=== PATIENT | female | born 1985 ===

== ENCOUNTER 2017-01-09 09:40 | Emergency (ER) | payer OTHER ==
[2017-01-09 09:40] VITALS: BMI 27.0
[2017-01-09 09:48] VITALS: RESP 18; TEMP 97.6
--- NOTE | 2017-01-09 10:36 | C.PDOC ---
History Of Present Illness 31 year old patient, with a past medical history of hypertension, presents to the ED complaining of light headedness, weakness, and nausea since earlier today when she was at work ([employer]). Patient has a history of gastric sleeve in 05/[address] Mcintosh. Patient admits she has had similar symptoms several times before today- usually eats some candy/drinks soda and symptoms resolve. She also states she checked her blood pressure prior to arrival, and that it was high. Patient states she feels better now. She denies a history of diabetes. She also admits she has not been taking her supplements/vitamins like she should be. Patient denies fever, dizziness, chest pain, shortness of breath, vomiting, abdominal pain. Time Seen by Provider: 01/09/17 09:55 Chief Complaint (Nursing): High Blood Pressure History Per: Patient History/Exam Limitations: no limitations Onset/Duration Of Symptoms: Hrs (prior to arrival) Current Symptoms Are (Timing): Still Present Associated Symptoms: Other (nausea) Severity: Mild Exacerbating Factor(s): Pos: None Recent travel outside of the [place]: No Past Medical History Reviewed: Historical Data, Nursing Documentation, Vital Signs Vital Signs: Last Vital Signs Temp 97.6 F 01/09/17 09:46 Pulse 73 01/09/17 11:25 Resp 18 01/09/17 11:25 BP 132/71 01/09/17 11:25 Pulse Ox 100 01/09/17 11:51 - Medical History PMH: HTN Surgical History: Endoscopy - [facility] Procedures ESOPHAGOGASTRODUODENOSCOPY [EGD] W/CLOSED BIOPSY (02/08/15) EXCISION OF DUODENUM, ENDO, DIAGN (07/17/16) EXCISION OF STOMACH, ENDO, DIAGN (07/17/16) LAPAROSCOPIC ROBOTIC ASSISTED PROCEDURE (05/23/15) LAPAROSCOPIC VERTICAL (SLEEVE) GASTRECTOMY (05/23/15) OTHER GASTROSCOPY (05/23/15) Family History: States: No Known Family Hx - Social History Hx Tobacco Use: No Hx Alcohol Use: Yes (ocassionally) Hx Substance Use: No (Canabis) - Immunization History Hx Tetanus Toxoid Vaccination: No Hx Influenza Vaccination: Yes Hx Pneumococcal Vaccination: Yes Review Of Systems Except As Marked, All Systems Reviewed And Found Negative. Constitutional: Positive for: Weakness. Negative for: Fever Cardiovascular: Positive for: Light Headedness. Negative for: Chest Pain, Palpitations Respiratory: Negative for: Cough, Shortness of Breath Gastrointestinal: Positive for: Nausea. Negative for: Vomiting, Abdominal Pain , Diarrhea Neurological: Negative for: Dizziness Physical Exam - Physical Exam Appears: Well, Non-toxic, No Acute Distress Skin: Warm, Dry Head: Normacephalic Eye(s): bilateral: Normal Inspection Oral Mucosa: Moist Neck: Supple Cardiovascular: Rhythm Regular Respiratory: Normal Breath Sounds, No Rales, No Rhonchi, No Wheezing Gastrointestinal/Abdominal: Normal Exam, Bowel Sounds, Soft, No Tenderness Back: Normal Inspection, No CVA Tenderness Extremity: Normal ROM Neurological/Psych: Oriented x3 Gait: Steady ED Course And Treatment O2 Sat by Pulse Oximetry: 100 (Room Air) Pulse Ox Interpretation: Normal Progress Note: Accheck ordered and reviewed- was low, given PO juice. Reevaluation Time: 11:20 Reassessment Condition: Improved (Patient reassessed, is currently resting comfortably, accucheck has improved and she feels well. She was seen by nutrionist in ED. Patient feels well, repeat accucheck WNL, and patient is comfortale being discharged home. Patient instructed to follow up with bariatric surgeon within 1 week, and she understands she should return to ED if symptoms worsen.) - Physician Consult Information Physician Contacted: Javi Mcintosh Outcome Of Conversation: Spoke with Dr. Mcintosh, he recommends nutrional consult (here or as outpatient). He states he no longer practices bariatrics. Disposition Counseled Patient/Family Regarding: Diagnosis, Need For Followup - Disposition Referrals: Maia Hall MD [Primary Care Provider] - Colby Lopez MD [Staff Provider] - [facility] [Outside] Disposition: HOME/ ROUTINE Disposition Time: 11:20 Condition: STABLE Prescriptions: Lactose-Reduced Food [Ensure Original] 237 ml PO BID #10 bottle Instructions: Non-diabetic Hypoglycemia (ED) Print Language: MARSHALLESE - POA Present On Arrival: None - Clinical Impression Clinical Impression: Bariatric surgery status, Hypoglycemia - Scribe Statement The provider has reviewed the documentation as recorded by the Scribe Jaki Arias Provider Attestation: All medical record entries made by the Scribe were at my direction and personally dictated by me. I have reviewed the chart and agree that the record accurately reflects my personal performance of the history, physical exam, medical decision making, and the department course for this patient. I have also personally directed, reviewed, and agree with the discharge instructions and disposition.
[2017-01-09 11:26] VITALS: BP 132/71; PULSE 73
[2017-01-09 11:35] VITALS: O2SAT 100
== END 2017-01-09 11:26 | disposition home or self-care (01) ==
LOC: C.ER 09:40 → SUPCPDRO 09:40 → C.ER 11:26
DX: E16.2 Hypoglycemia, unspecified (principal); Z98.84 Bariatric surgery status

== ENCOUNTER 2017-02-11 20:08 | Emergency (ER) | payer OTHER ==
[2017-02-11 20:08] VITALS: BMI 27.0
[2017-02-11 20:21] VITALS: BP 134/90; PULSE 76; TEMP 97.4; O2SAT 100
[2017-02-11] MEDS ORDERED: Tmp-Smz 800 mg-160 mg DS Tab PO STA (20:43)
--- NOTE | 2017-02-11 20:43 | C.PDOC ---
History Of Present Illness The patient reports that she developed sudden onset of swelling and pain to the vaginal/clitoral area today, which is associated with purulent drainage. Patient reports that she had a peircing which was removed 2 years, but now new piercings or punctures. Denies fever Time Seen by Provider: 02/11/17 20:22 Chief Complaint (Nursing): Abnormal Skin Integrity History Per: Patient History/Exam Limitations: no limitations Onset/Duration Of Symptoms: Days (1), Persistent Quality Of Symptoms: Painful Pain Scale Rating Of: 4 Recent travel outside of the [place]: No Past Medical History Vital Signs: Last Vital Signs Temp 97.4 F L 02/11/17 20:18 Pulse 76 02/11/17 20:18 Resp 20 02/11/17 21:31 BP 134/90 02/11/17 20:18 Pulse Ox 100 02/11/17 21:23 - Medical History PMH: No Chronic Diseases, HTN Denies: Chronic Kidney Disease Surgical History: Endoscopy - [facility] Procedures ESOPHAGOGASTRODUODENOSCOPY [EGD] W/CLOSED BIOPSY (02/08/15) EXCISION OF DUODENUM, ENDO, DIAGN (07/17/16) EXCISION OF STOMACH, ENDO, DIAGN (07/17/16) LAPAROSCOPIC ROBOTIC ASSISTED PROCEDURE (05/23/15) LAPAROSCOPIC VERTICAL (SLEEVE) GASTRECTOMY (05/23/15) OTHER GASTROSCOPY (05/23/15) Family History: States: No Known Family Hx - Social History Hx Tobacco Use: No Hx Alcohol Use: Yes (ocassionally) Hx Substance Use: No (Canabis) - Immunization History Hx Tetanus Toxoid Vaccination: No Hx Influenza Vaccination: Yes Hx Pneumococcal Vaccination: Yes Review Of Systems Except As Marked, All Systems Reviewed And Found Negative. Constitutional: Negative for: Fever, Chills Cardiovascular: Negative for: Chest Pain Genitourinary: Negative for: Dysuria, Frequency, Hematuria, Vaginal Discharge, Vaginal Bleeding Musculoskeletal: Negative for: Neck Pain, Leg Pain Skin: Negative for: Rash, Bruising Neurological: Negative for: Weakness, Numbness Physical Exam - Physical Exam Appears: Non-toxic, No Acute Distress Skin: Warm, Dry Head: Atraumatic, Normacephalic Eye(s): bilateral: Normal Inspection, PERRL, EOMI Oral Mucosa: Moist Neck: Normal ROM, Supple Gastrointestinal/Abdominal: Soft, No Tenderness Pelvic: Other ((+) 1cm area of mild swelling and tenderness to the clitoral mo , with open wound but no active drainage. No fluctuance or induration) Extremity: Normal ROM, No Swelling Neurological/Psych: Oriented x3, Normal Speech, Normal Motor Gait: Steady ED Course And Treatment O2 Sat by Pulse Oximetry: 100 (on RA) Pulse Ox Interpretation: Normal Disposition - Disposition Referrals: Maia Hall MD [Staff Provider] - Disposition: HOME/ ROUTINE Disposition Time: 21:20 Condition: GOOD Additional Instructions: Soak with warm water or warm compresses 4-5 times per days. Follow up with the medical doctor within 1-2 days for wound check, Return if worsened Prescriptions: Cephalexin [cephalexin] 500 mg PO BID #19 cap Sulfamethoxazole/Trimethoprim [Bactrim DS 800 mg-160 mg] 1 tab PO BID #19 tab Instructions: Abscess (ED) - Clinical Impression Clinical Impression: Abscess
[2017-02-11] MEDS ORDERED: Tmp-Smz 800 mg-160 mg DS Tab ONE (20:54)
[2017-02-11 21:31] VITALS: RESP 20
== END 2017-02-11 21:31 | disposition home or self-care (01) ==
LOC: C.ER 20:08
DX: N76.0 Acute vaginitis (principal)

== ENCOUNTER 2018-03-09 11:47 | Emergency (ER) | payer OTHER ==
[2018-03-09 12:00] VITALS: BMI 27.5
[2018-03-09 12:03] VITALS: O2SAT 100
[2018-03-09] MEDS ORDERED: Sodium Chloride 0.9% 1,000 ML IV ONE (13:07)
[2018-03-09] MEDS ORDERED: Sodium Chloride 0.9% 1,000 ML ONE (13:24)
[2018-03-09 13:25] LABS: BASO % 0.3 % (0.0-2.0); EOS # 0.2 K/uL (0.0-0.7); HEMOGLOBIN 10.6 g/dL (11.0-16.0); LYMPH # 0.9 K/uL (1.0-4.3); LYMPH % 11.5 % (20.0-40.0); MEAN CORPUSCULAR HEMOGLOBIN 20.8 pg (27.0-31.0); MEAN CORPUSCULAR HGB CONC 31.6 g/dL (33.0-37.0); MEAN PLATELET VOLUME 8.6 fL (7.2-11.7); MONO # 0.6 K/uL (0.0-0.8); NEUT % 78.2 % (50.0-75.0); NRBC % 0.1 % (0.0-2.0); RBC 5.1 Mil/uL (3.80-5.20); RED CELL DISTRIBUTION WIDTH 16.9 % (11.5-14.5)
[2018-03-09 13:29] LABS: HCG,QUALITATIVE URINE NEGATIVE (NEGATIVE)
[2018-03-09 13:32] LABS: MEAN CELL VOLUME 65.7 fL (81.0-99.0); WHITE BLOOD COUNT 7.7 K/uL (4.8-10.8)
[2018-03-09 13:38] LABS: ALB/GLOB RATIO 1.2 (1.0-2.1); ALBUMIN 4.3 g/dL (3.5-5.0); ALT/SGPT 35 U/L (9-52); AST/SGOT 35 U/L (14-36); BLOOD UREA NITROGEN 12 mg/dL (7-17); CALCIUM 9.3 mg/dl (8.6-10.4); GFR AFRICAN-AMERICAN > 60; GFR NON-AFRICAN AMERICAN > 60; LIPASE 84 U/L (23-300); SQUAMOUS EPITHIAL 3 /hpf (0-5); URINE BILIRUBIN NEGATIVE (NEGATIVE); URINE BLOOD NEGATIVE (NEGATIVE); URINE CLARITY Clear (Clear); URINE COLOR Amber (YELLOW); URINE GLUCOSE (UA) NORMAL (Normal); URINE LEUKOCYTE ESTERASE NEG Leu/uL (Negative); URINE PROTEIN 1+ mg/dL (NEGATIVE)
--- NOTE | 2018-03-09 13:50 | C.PDOC ---
History Of Present Illness 32 yo female w/PMhx of anemia, morbid obesity s/p gastric sleeve 2015 by rolo Long, come in for vealuation of gradual onset of epigastric pain, nausea, few episodes of vomiting since last night. Pt admits, " took Zoloft and then had few beers when I started to feel pain in my stomach". Pt admits, was able tolerate breakfast this AM. Otherwise, pt denies fever, chills , dizziness, CP, SOB, dyspnea, palpitation, hematemesis, melena, hematoschezia, back pain, UTI sx. Ambulate to ED for evaluation, not in any apparent distress. Time Seen by Provider: 03/09/18 12:18 Chief Complaint (Nursing): Abdominal Pain History Per: Patient Onset/Duration Of Symptoms: Gradual Past Medical History Reviewed: Historical Data, Nursing Documentation, Vital Signs Vital Signs: Last Vital Signs Temp 98.4 F 03/09/18 16:28 Pulse 69 03/09/18 16:28 Resp 20 03/09/18 16:28 BP 130/87 03/09/18 16:28 Pulse Ox 100 03/09/18 16:28 - Medical History PMH: Anemia, HTN Denies: Chronic Kidney Disease Surgical History: Endoscopy Other Surgeries: Gastric sleeve 2014 - [facility] Procedures ESOPHAGOGASTRODUODENOSCOPY [EGD] W/CLOSED BIOPSY (02/08/15) EXCISION OF DUODENUM, ENDO, DIAGN (07/17/16) EXCISION OF STOMACH, ENDO, DIAGN (07/17/16) LAPAROSCOPIC ROBOTIC ASSISTED PROCEDURE (05/23/15) LAPAROSCOPIC VERTICAL (SLEEVE) GASTRECTOMY (05/23/15) OTHER GASTROSCOPY (05/23/15) Family History: States: Unknown Family Hx - Social History Hx Tobacco Use: No Hx Alcohol Use: Yes (ocassionally) Hx Substance Use: No (Canabis) - Immunization History Hx Tetanus Toxoid Vaccination: No Hx Influenza Vaccination: Yes Hx Pneumococcal Vaccination: Yes Review Of Systems Except As Marked, All Systems Reviewed And Found Negative. Constitutional: Negative for: Fever, Chills Eyes: Negative for: Vision Change ENT: Negative for: Throat Pain Cardiovascular: Negative for: Chest Pain, Palpitations, Edema, Light Headedness Respiratory: Negative for: Cough, Shortness of Breath, Wheezing Gastrointestinal: Positive for: Nausea, Vomiting, Abdominal Pain. Negative for : Diarrhea, Melena, Hematochezia, Hematemesis Genitourinary: Negative for: Dysuria, Frequency, Incontinence Musculoskeletal: Negative for: Neck Pain, Back Pain Skin: Negative for: Rash Neurological: Negative for: Weakness, Numbness, Altered Mental Status, Headache , Dizziness Physical Exam - Physical Exam Appears: Well, Non-toxic, No Acute Distress Skin: Normal Color, Warm, Dry, No Rash Head: Normacephalic Eye(s): bilateral: PERRL Nose: No Flaring, No Discharge Oral Mucosa: Moist Throat: No Erythema, No Drooling Neck: Trachea Midline, Supple Cardiovascular: Rhythm Regular, No Murmur, No JVD Respiratory: No Decreased Breath Sounds, No Accessory Muscle Use, No Stridor, No Wheezing Gastrointestinal/Abdominal: Bowel Sounds (normal), Soft, Tenderness (mod epigastric), No Distention, No Guarding, No Rebound Back: No CVA Tenderness Extremity: Normal ROM, No Deformity, No Swelling Neurological/Psych: Oriented x3, Normal Speech ED Course And Treatment - Laboratory Results Result Diagrams: 03/09/18 13:20 03/09/18 13:20 Lab Interpretation: No Changes Compared To Prior Results O2 Sat by Pulse Oximetry: 100 Pulse Ox Interpretation: Normal - Other Rad Abd, 2 views X-Ray: Interpreted by Me Interpretation: . - CT Scan/US CT abd/pelvis Other Rad Studies (CT/US): Radiology Report Reviewed CT/US Interpretation: Dictator : Mendel Kamara MD. Frame Runner : Preparation Supervisor Canning : Mendel Kamara MD. Approver2 : Report Date : 03/09/2018 15:39: 30. My Comment : . This report is currently processing and HAS NOT BEEN OFFICIALLY SIGNED BY THE PHYSICIAN - ESTIMATED TIME OF APPROVAL IS 03/09/2018 15 :45. PROCEDURE: CT Abdomen and Pelvis with contrast. HISTORY: Vomiting, r/o obstruction s/p gastric sleeve. Negative test (concurrent with this examination). COMPARISON: 07/17/2016. TECHNIQUE: Contrast dose: 100 cc Visipaque 320. Radiation dose: Total exam DLP = 802.54 mGy-cm. This CT exam was performed using one or more of the following dose reduction techniques: Automated exposure control, adjustment of the mA and/or kV according to patient size, and/or use of iterative reconstruction technique. FINDINGS: LOWER THORAX : Unremarkable. LIVER: Hepatic steatosis. No focal masses. No intrahepatic bile duct dilatation or perihepatic ascites. GALLBLADDER AND BILE DUCTS: Unremarkable. PANCREAS: Unremarkable. No gross lesion or ductal dilatation. SPLEEN: Unremarkable. ADRENALS: Unremarkable. No mass. KIDNEYS AND URETERS: Nonobstructing midpole calculus 6 mm right kidney. Stable finding compared to the prior study. Unremarkable left kidney in ureter. VASCULATURE: Unremarkable. No aortic aneurysm. BOWEL: Stable postoperative findings related to gastric sleeve. APPENDIX: Normal appendix. PERITONEUM: Unremarkable. No free fluid. No free air. LYMPH NODES: Unremarkable. No enlarged lymph nodes. BLADDER: Unremarkable. REPRODUCTIVE: Unremarkable. BONES: No acute fracture. OTHER FINDINGS: None. IMPRESSION: No acute findings related to/accounting for the clinical presentation. Additional benign and/or incidental findings described above. No significant interval change compared to the prior examination(s). Progress Note: Pt was OBS in ED for 3.5 hrs and reports mod improvement in sx. On re-evaluation, pt is afebrile, hemodynamicaly stable. Non-toxic. Tolerate Po well in ED. ENT: no acute finidgs. Neck: Supple, (-) JVD, (-) carotid bruits B/L. Lungs: CTA B/L, BS equla B/L. CVS: (+)S1S2, reg. Abd: benign, (- ) guarding, (-) rebound. Back: (-) CVA tenderness. Blood work review, appears normal. CT abd/plevis- no acute changes. Pt has clinical finidngs c/w epigastric pain, N/V. Pt advised. ref. to F/u with PMD, GI in 2-3 days for re- evaluation. return to ED if any worsening or new changes. Disposition Counseled Patient/Family Regarding: Studies Performed, Diagnosis, Need For Followup, Rx Given - Disposition Referrals: Maia Hall MD [Staff Provider] - Disposition: HOME/ ROUTINE Disposition Time: 15:41 Condition: STABLE Additional Instructions: Encourage fluids SNOW diet for 2-3 days- banana, rice, apple sauce, rice. Avoid dairy, milk, cheese, eggs for 1 week take medication as prescribed Follow up with PMD in 2-3 days for re-evaluation. return to ED if any worsening or new changes. Prescriptions: Pantoprazole Sodium [Protonix] 40 mg PO DAILY #14 tablet.dr Instructions: Nausea and Vomiting, Adult (DC), Gastritis (DC) Forms: [facility] (German), Work Excuse - Clinical Impression Clinical Impression: Epigastric abdominal pain, Vomiting
[2018-03-09] MEDS ORDERED: Morphine 4 MG/ML VIAL ONE (14:46)
[2018-03-09] MEDS ORDERED: Iodixanol 320 mg/ml 150 ml Bottle IV ONE (15:03)
--- NOTE | 2018-03-09 15:41 | CT ---
PROCEDURE: CT Abdomen and Pelvis with contrast HISTORY: Vomiting, r/o obstruction s/p gastric sleeve Negative test (concurrent with this examination). COMPARISON: 07/17/2016 TECHNIQUE: Contrast dose: 100 cc Visipaque 320 Radiation dose: Total exam DLP = 802.54 mGy-cm. This CT exam was performed using one or more of the following dose reduction techniques: Automated exposure control, adjustment of the mA and/or kV according to patient size, and/or use of iterative reconstruction technique. FINDINGS: LOWER THORAX: Unremarkable. LIVER: Hepatic steatosis. No focal masses. No intrahepatic bile duct dilatation or perihepatic ascites. GALLBLADDER AND BILE DUCTS: Unremarkable. PANCREAS: Unremarkable. No gross lesion or ductal dilatation. SPLEEN: Unremarkable. ADRENALS: Unremarkable. No mass. KIDNEYS AND URETERS: Nonobstructing midpole calculus 6 mm right kidney. Stable finding compared to the prior study Unremarkable left kidney in ureter VASCULATURE: Unremarkable. No aortic aneurysm. BOWEL: Stable postoperative findings related to gastric sleeve. APPENDIX: Normal appendix. PERITONEUM: Unremarkable. No free fluid. No free air. LYMPH NODES: Unremarkable. No enlarged lymph nodes. BLADDER: Unremarkable. REPRODUCTIVE: Unremarkable. BONES: No acute fracture. OTHER FINDINGS: None. IMPRESSION: No acute findings related to/accounting for the clinical presentation. Additional benign and/or incidental findings described above. No significant interval change compared to the prior examination(s).
--- NOTE | 2018-03-09 16:19 | RAD ---
HISTORY: pain, vomiting s/p gastric sleeve COMPARISON: Room March 09, 2018. CT abdomen and pelvis FINDINGS: BOWEL: Normal. No obstruction. No free air. BONES: Sclerotic changes in the inter trochanteric region likely bone infarct. OTHER FINDINGS: None. IMPRESSION: No acute findings related to/accounting for the clinical presentation.
[2018-03-09 16:30] VITALS: BP 130/87; PULSE 69; RESP 20; TEMP 98.4
== END 2018-03-09 16:28 | disposition home or self-care (01) ==
LOC: C.ER 11:47
DX: R10.13 Epigastric pain (principal); R11.2 Nausea with vomiting, unspecified; I10 Essential (primary) hypertension; E66.01 Morbid (severe) obesity due to excess calories
CPT/HCPCS: 74019; 74177; 80053; 81001; 83690; 84703; 85025; 96361; 96374; 96375; 99285; C9113; J2270; J2405; J7030; Q9967

== ENCOUNTER 2018-03-19 13:41 | Emergency (ER) | payer OTHER ==
[2018-03-19 13:41] VITALS: BMI 27.5
[2018-03-19 13:54] VITALS: O2SAT 100
[2018-03-19] MEDS ORDERED: Sodium Chloride 0.9% 1,000 ML IV ONE (13:58)
[2018-03-19] MEDS ORDERED: Aluminum Hydroxide/Magnesium Hydroxide Susp (30 mL) PO STA (13:58)
[2018-03-19] MEDS ORDERED: Sodium Chloride 0.9% 1,000 ML ONE (14:09)
[2018-03-19] MEDS ORDERED: Aluminum Hydroxide/Magnesium Hydroxide Susp (30 mL) ONE (14:09)
[2018-03-19 14:18] LABS: BASO % 0.6 % (0.0-2.0); EOS # 0.2 K/uL (0.0-0.7); EOS % 2.2 % (0.0-4.0); HEMOGLOBIN 10.4 g/dL (11.0-16.0); LYMPH # 1.6 K/uL (1.0-4.3); LYMPH % 22.6 % (20.0-40.0); MEAN CELL VOLUME 64.6 fL (81.0-99.0); MEAN CORPUSCULAR HEMOGLOBIN 20.6 pg (27.0-31.0); MEAN CORPUSCULAR HGB CONC 31.9 g/dL (33.0-37.0); MEAN PLATELET VOLUME 8.2 fL (7.2-11.7); MONO # 0.6 K/uL (0.0-0.8); MONO % 7.8 % (0.0-10.0); NEUT # 4.8 K/uL (1.8-7.0); NEUT % 66.8 % (50.0-75.0); RBC 5.03 Mil/uL (3.80-5.20); RED CELL DISTRIBUTION WIDTH 17.1 % (11.5-14.5); WHITE BLOOD COUNT 7.2 K/uL (4.8-10.8)
[2018-03-19 14:30] LABS: ALB/GLOB RATIO 1.4 (1.0-2.1); ALBUMIN 4.7 g/dL (3.5-5.0); ALT/SGPT 38 U/L (9-52); AST/SGOT 29 U/L (14-36); BLOOD UREA NITROGEN 12 mg/dL (7-17); CALCIUM 9.6 mg/dl (8.6-10.4); GFR AFRICAN-AMERICAN > 60; GFR NON-AFRICAN AMERICAN > 60; LIPASE 87 U/L (23-300)
--- NOTE | 2018-03-19 15:05 | C.PDOC ---
History Of Present Illness 32yo female, employee of [employer], comes to ER for evaluation of abdominal pain, mostly in her epigastrium, consistent with gastritis. Patient states she has had diarrhea x 2 weeks and is unable to tolerate PO intake; she reports multiple episodes of vomiting as well. Patient reports the pain is non- radiating, intermittently present and is 8/10. Patient reports she is increasingly anxious and tearful but denies any history of anxiety, depression, panic disorders. Patient states she used to smoke marijuana but stopped when her gastritic symptoms began. Patient has been evaluated multiple times for similar complaints with negative workups. Otherwise, she denies any headache, fever or chills. Time Seen by Provider: 03/19/18 13:52 Chief Complaint (Nursing): Abdominal Pain History Per: Patient History/Exam Limitations: no limitations Onset/Duration Of Symptoms: Days, Persistent Current Symptoms Are (Timing): Still Present Associated Symptoms: Nausea, Vomiting, Diarrhea. denies: Fever, Chills Additional History Per: Patient Past Medical History Reviewed: Historical Data, Nursing Documentation, Vital Signs Vital Signs: Last Vital Signs Temp 97.8 F 03/19/18 13:51 Pulse 79 03/19/18 13:51 Resp 22 03/19/18 13:51 BP 129/90 03/19/18 13:51 Pulse Ox 100 03/19/18 15:27 - Medical History PMH: Anemia, HTN Denies: Chronic Kidney Disease Surgical History: Endoscopy - [facility] Procedures ESOPHAGOGASTRODUODENOSCOPY [EGD] W/CLOSED BIOPSY (02/08/15) EXCISION OF DUODENUM, ENDO, DIAGN (07/17/16) EXCISION OF STOMACH, ENDO, DIAGN (07/17/16) LAPAROSCOPIC ROBOTIC ASSISTED PROCEDURE (05/23/15) LAPAROSCOPIC VERTICAL (SLEEVE) GASTRECTOMY (05/23/15) OTHER GASTROSCOPY (05/23/15) Family History: States: Unknown Family Hx - Social History Hx Tobacco Use: No Hx Alcohol Use: Yes (ocassionally) Hx Substance Use: No (Canabis) - Immunization History Hx Tetanus Toxoid Vaccination: No Hx Influenza Vaccination: Yes Hx Pneumococcal Vaccination: Yes Review Of Systems Except As Marked, All Systems Reviewed And Found Negative. Constitutional: Negative for: Fever, Chills Gastrointestinal: Positive for: Nausea, Vomiting, Abdominal Pain, Diarrhea Psych: Positive for: Anxiety Physical Exam - Physical Exam Appears: Non-toxic, Other (anxious, tearful) Skin: Normal Color, Warm, Dry Head: Atraumatic, Normacephalic Eye(s): bilateral: Normal Inspection Neck: Supple Chest: Symmetrical Cardiovascular: Rhythm Regular Respiratory: Normal Breath Sounds Gastrointestinal/Abdominal: Soft, Tenderness (epigastric), No Mass, No Guarding , No Rebound Back: Normal Inspection Extremity: Normal ROM Neurological/Psych: Oriented x3, Normal Speech, Normal Cognition, Normal Motor, Normal Sensation ED Course And Treatment - Laboratory Results Result Diagrams: 03/19/18 14:14 03/19/18 14:14 O2 Sat by Pulse Oximetry: 100 (RA) Pulse Ox Interpretation: Normal Medical Decision Making Medical Decision Making: Patient feeling much better after Ativan. Tolerating PO. Spoke with Dr. Hall. patient safe for discharge. Will refer to Dr. Riddle for anxiety. Disposition Discussed With : Maia Hall Doctor Will See Patient In The: Office Counseled Patient/Family Regarding: Studies Performed, Diagnosis, Need For Followup, Rx Given - Disposition Referrals: Ary Riddle MD [Staff Provider] - Mainor Melvin MD, PhD [Staff Provider] - Disposition: HOME/ ROUTINE Disposition Time: 15:21 Condition: STABLE Prescriptions: Aluminum Hydroxide/Magnesium H [Maalox 30 ml] 30 ml PO BID #1 bottle LORazepam [Ativan] 1 mg PO TID PRN #12 tab PRN Reason: Anxiety Omeprazole Magnesium [Prilosec Otc] 20 mg PO HS #15 tab Instructions: Gastritis (DC) Forms: [facility] (Ukrainian), General Discharge Instructions - POA Present On Arrival: None - Clinical Impression Clinical Impression: Gastritis, Anxiety - Scribe Statement The provider has reviewed the documentation as recorded by the Scribe (Juju Lowry) Provider Attestation: All medical record entries made by the Scribe were at my direction and personally dictated by me. I have reviewed the chart and agree that the record accurately reflects my personal performance of the history, physical exam, medical decision making, and the department course for this patient. I have also personally directed, reviewed, and agree with the discharge instructions and disposition.
[2018-03-19 15:25] LABS: HCG,QUALITATIVE URINE NEGATIVE (NEGATIVE)
[2018-03-19 15:31] LABS: SQUAMOUS EPITHIAL 6 /hpf (0-5); URINE BILIRUBIN NEGATIVE (NEGATIVE); URINE BLOOD NEGATIVE (NEGATIVE); URINE CLARITY Hazy (Clear); URINE COLOR Yellow (YELLOW); URINE GLUCOSE (UA) NORMAL (Normal); URINE LEUKOCYTE ESTERASE NEG Leu/uL (Negative); URINE PROTEIN 1+ mg/dL (NEGATIVE)
[2018-03-19 15:46] LABS: BARBITURATES, UR NEGATIVE (NEGATIVE); BENZODIAZEPINES, UR NEGATIVE (NEGATIVE); OPIATES, UR NEGATIVE (NEGATIVE); PHENCYCLIDINE, UR NEGATIVE (NEGATIVE)
[2018-03-19 15:48] VITALS: BP 124/85; PULSE 71; RESP 18; TEMP 98.5
== END 2018-03-19 16:00 | disposition home or self-care (01) ==
LOC: C.ER 13:41
DX: K29.70 Gastritis, unspecified, without bleeding (principal); F41.9 Anxiety disorder, unspecified
CPT/HCPCS: 80053; 80324; 80345; 80346; 80349; 80353; 80358; 80361; 81001; 83690; 83992; 84703; 85025; 96361; 96374; 96375; 99285; J2405; J7030

== ENCOUNTER 2018-04-01 06:33 | Day surgery (SDC) | payer OTHER ==
[2018-04-01] MEDS ORDERED: Midazolam 2 MG/2 ML VIAL ONE (08:03)
[2018-04-01] MEDS ORDERED: Propofol 10 mg/ml Inj (20 ML) ONE (08:03)
[2018-04-01] MEDS ORDERED: Lidocaine Hydrochloride 5 ML INJ ONE (08:06)
[2018-04-01 10:05] VITALS: TEMP 98.3
[2018-04-01 10:29] VITALS: PULSE 61; RESP 14
[2018-04-01 10:42] VITALS: BP 124/89; O2SAT 98
== END 2018-04-01 11:05 | disposition home or self-care (01) ==
LOC: C.ENDO 06:33
PROVIDERS: ATTEND Internal Medicine Gastroenterology
DX: R10.13 Epigastric pain (principal); L53.8 Other specified erythematous conditions
CPT/HCPCS: 43239; 84703; 88305; 88313; 88342; J2250; J2704; J3010

== ENCOUNTER 2018-04-19 09:32 | Emergency (ER) | payer OTHER ==
[2018-04-19 09:33] VITALS: BMI 27.5
[2018-04-19 09:41] VITALS: O2SAT 100
[2018-04-19] MEDS ORDERED: Sodium Chloride 0.9% 1,000 ML IV STA (10:02)
--- NOTE | 2018-04-19 10:02 | C.PDOC ---
History Of Present Illness 32-year-old female, presents to the emergency department with complaints of anxiety. Patient states she was supposed to take her Seraquil 50mg, Hydroxine Hydrochloride 25mg, and [place] 150 this morning. Patient states she took Lorazepam instead by mistake, which she usually takes at night, after which she started feeling sleepy and developed anxiety, prompting visit. Patient denies any nausea/vomiting, fever, chills, or any other associated symptoms. Currently patient just c/o feeling sleepy. Chief Complaint (Nursing): Medical Clearance History Per: Patient History/Exam Limitations: no limitations Current Symptoms Are (Timing): Still Present Severity: Moderate Past Medical History Reviewed: Historical Data, Nursing Documentation, Vital Signs Vital Signs: Last Vital Signs Temp 98.8 F 04/19/18 13:06 Pulse 69 04/19/18 13:06 Resp 17 04/19/18 13:06 BP 132/89 04/19/18 13:06 Pulse Ox 100 04/19/18 13:52 - Medical History PMH: Anemia (DOES NOT KNOW WHY. HG. 6.2 AT THE TIME), Anxiety, Depression, HTN ( OFF MEDS) Surgical History: Endoscopy - [facility] Procedures ESOPHAGOGASTRODUODENOSCOPY [EGD] W/CLOSED BIOPSY (02/08/15) EXCISION OF DUODENUM, ENDO, DIAGN (07/17/16) EXCISION OF STOMACH, ENDO, DIAGN (07/17/16) LAPAROSCOPIC ROBOTIC ASSISTED PROCEDURE (05/23/15) LAPAROSCOPIC VERTICAL (SLEEVE) GASTRECTOMY (05/23/15) OTHER GASTROSCOPY (05/23/15) Family History: States: No Known Family Hx - Social History Hx Tobacco Use: No Hx Alcohol Use: Yes (ocassionally) Hx Substance Use: No (Canabis) - Immunization History Hx Tetanus Toxoid Vaccination: No Hx Influenza Vaccination: Yes Hx Pneumococcal Vaccination: Yes Review Of Systems Constitutional: Negative for: Fever Cardiovascular: Negative for: Chest Pain Respiratory: Negative for: Shortness of Breath Gastrointestinal: Negative for: Vomiting Psych: Positive for: Anxiety Physical Exam - Physical Exam Appears: Non-toxic, No Acute Distress Skin: Normal Color, Warm, Dry, No Rash Head: Atraumatic, Normacephalic Eye(s): bilateral: Normal Inspection Nose: Normal Oral Mucosa: Moist Lips: Normal Appearing Neck: Normal ROM Cardiovascular: Rhythm Regular, No Murmur Respiratory: Normal Breath Sounds, No Accessory Muscle Use Gastrointestinal/Abdominal: Soft, No Tenderness Extremity: Normal ROM, No Deformity, No Swelling Neurological/Psych: Oriented x3, Normal Speech ED Course And Treatment - Laboratory Results Result Diagrams: 04/19/18 10:25 04/19/18 10:25 O2 Sat by Pulse Oximetry: 100 Pulse Ox Interpretation: Normal (RA) Progress Note: EKG, Bloodwork, and UA ordered and reviewed. Patient treayed with IVF and observed in ED for 4.5 h. On re-evaluation patient feels better, tolerates po, ambulatory, no suicidal ideations. Patient has h/o iron deficiancy anemia, her Hgb is 8.8 that significantly lower then her previous result of 10.4 one month ago. Case was d/w patient's PMD who sts patient can be d/c home and follow up with him tomorrow. He will arrange Iron infusion within next couple of days. Disposition - Disposition Referrals: Maia Hall MD [Staff Provider] - Disposition: HOME/ ROUTINE Disposition Time: 13:49 Condition: STABLE Additional Instructions: Follow up with within 1-2 days. Return to ED if feel worse. Instructions: Anemia Caused by Low Iron, Adult (DC), Lorazepam Forms: [facility] (Nepali) - Clinical Impression Clinical Impression: Anxiety, Iron deficiency anemia - Scribe Statement The provider has reviewed the documentation as recorded by the Scribe (Susan Hyde) All medical record entries made by the Scribe were at my direction and personally dictated by me. I have reviewed the chart and agree that the record accurately reflects my personal performance of the history, physical exam, medical decision making, and the department course for this patient. I have also personally directed, reviewed, and agree with the discharge instructions and disposition.
[2018-04-19 10:30] LABS: BASO % 0.8 % (0.0-2.0); EOS # 0.2 K/uL (0.0-0.7); HEMOGLOBIN 8.8 g/dL (11.0-16.0); LYMPH # 1.3 K/uL (1.0-4.3); MEAN CELL VOLUME 65.3 fL (81.0-99.0); MEAN CORPUSCULAR HEMOGLOBIN 20.8 pg (27.0-31.0); MEAN CORPUSCULAR HGB CONC 31.8 g/dL (33.0-37.0); MEAN PLATELET VOLUME 7.5 fL (7.2-11.7); MONO # 0.3 K/uL (0.0-0.8); MONO % 7.5 % (0.0-10.0); NEUT # 2.6 K/uL (1.8-7.0); NEUT % 58.7 % (50.0-75.0); RBC 4.22 Mil/uL (3.80-5.20); RED CELL DISTRIBUTION WIDTH 17.7 % (11.5-14.5); WHITE BLOOD COUNT 4.5 K/uL (4.8-10.8)
[2018-04-19] MEDS ORDERED: Sodium Chloride 0.9% 1,000 ML ONE (10:31)
[2018-04-19 10:40] LABS: ALB/GLOB RATIO 1.3 (1.0-2.1); ALBUMIN 3.7 g/dL (3.5-5.0); ALT/SGPT 27 U/L (9-52); AST/SGOT 16 U/L (14-36); BLOOD UREA NITROGEN 13 mg/dL (7-17); CALCIUM 9.1 mg/dl (8.6-10.4); GFR AFRICAN-AMERICAN > 60; GFR NON-AFRICAN AMERICAN > 60
[2018-04-19 10:41] LABS: INR 1.2; PROTHROMBIN TIME 12.8 SECONDS (9.7-12.2)
[2018-04-19 10:52] LABS: CK-MB 1.18 ng/mL (0.0-3.38)
[2018-04-19 12:21] LABS: HCG,QUALITATIVE URINE NEGATIVE (NEGATIVE)
[2018-04-19 12:26] LABS: SQUAMOUS EPITHIAL 2 /hpf (0-5); URINE BILIRUBIN NEGATIVE (NEGATIVE); URINE BLOOD NEGATIVE (NEGATIVE); URINE CLARITY Clear (Clear); URINE COLOR Yellow (YELLOW); URINE GLUCOSE (UA) NORMAL (Normal); URINE LEUKOCYTE ESTERASE NEG Leu/uL (Negative); URINE PROTEIN NEGATIVE (NEGATIVE)
[2018-04-19 12:59] LABS: BARBITURATES, UR NEGATIVE (NEGATIVE); OPIATES, UR NEGATIVE (NEGATIVE); PHENCYCLIDINE, UR NEGATIVE (NEGATIVE)
[2018-04-19 13:08] LABS: BENZODIAZEPINES, UR POSITIVE (NEGATIVE)
[2018-04-19 13:12] VITALS: BP 132/89; PULSE 69; RESP 17; TEMP 98.8
--- NOTE | 2018-04-23 19:27 | CARD ---
APPROVED REPORT Date of service: 04/19/2018 EKG Measurement Heart [id number] <Conclusion> Normal sinus rhythm Normal ECG
== END 2018-04-19 14:20 | disposition home or self-care (01) ==
LOC: C.ER 09:32
DX: F41.9 Anxiety disorder, unspecified (principal); D50.9 Iron deficiency anemia, unspecified
CPT/HCPCS: 80053; 80178; 80324; 80345; 80346; 80349; 80353; 80358; 80361; 81001; 82550; 82553; 83992; 84484; 84703; 85025; 85610; 85730; 96360; 99285; J7030

== ENCOUNTER 2018-06-24 11:11 | Emergency (ER) | payer BC, OTHER ==
[2018-06-24 11:11] VITALS: BMI 27.5
[2018-06-24 11:21] VITALS: BP 129/83; PULSE 79; RESP 18; TEMP 98.8; O2SAT 100
== END 2018-06-24 11:25 | disposition left against medical advice (07) ==
LOC: C.ER 11:11
DX: Z02.89 Encounter for other administrative examinations (principal); R42 Dizziness and giddiness
CPT/HCPCS: 82948; LWBS0